=== PATIENT | male | born 1950 | race Caucasian/White ===

== ENCOUNTER → 2019-07-21 | Outpatient (CLI) | payer OTHER ==
[~2019-07-21] MED LIST: AMARYL2 MG PO; ASPIRIN EC81 M1; ASPIRIN EC81 M1 PO; ATORVASTATIN CA40 MG PO; AUGMENTIN 875875 MG PO; BACTRIM DS TAB1 EACH PO; CALCIUM 500 +1 EACH PO; CARVEDILOL12.5 MG PO; CENTRUM SILVER1 EAC2 PO; CIPRO500 MG PO; COLACE100 MG PO; COREG25 MG PO; DOXYCYCLINE 10100 MG PO; FORTAZ2 GM IVPB; GLUCOPHAGE1000 MG PO; HYDRALAZINE HC100 MG PO; HYDROCODONE-APA1 TA1 PO; IMDUR 30 MG TAB30 M1 PO; IRON325; IRON325 PO; LANTUS100 UNIT/M SUBQ; LASIX 40 MG TAB40 M2 PO; LISINOPRIL20 MG PO; METFORMIN HCL500 MG PO; NITROGLYCERIN0.4 MG SUBLING; NORCO 5-325 TA1 EACH PO; NORVASC10 MG PO; OMEPRAZOLE 20 M20 M1 PO; PLAVIX 75 MG TA75 M1 PO; PLAVIX 75 MG TA75 MG PO; SERTRALINE HCL50 MG PO; SODIUM BICARBO650 M3 PO; TRULICITY0.75 MG/0. SUBQ; TYLENOL325 MG PO; UNKNOWN BP MED; WELLBUTRIN SR150 MG PO; ZOLOFT25 MG; ZOSYN 3/0.373.375 G3 IVPB; [UNRECOGNIZED DRUG - REMARK]
[2019-07-21 11:00] LABS: HEMATOCRIT 30.7 % (42.0-52.0); HEMOGLOBIN 10.4 gm/dL (14.0-18.0); MCH 27.6 pg (26.0-34.0); MCHC 33.7 g/dL (28.0-37.0); MCV 81.9 fL (80.0-100.0); MPV 7.9 fl. (7.2-11.1); RBC 3.75 mil/uL (4.50-6.00); RDW-CV 14.6 % (10.5-14.5); WBC 9.5 thou/uL (4.0-11.0)
[2019-07-21 11:08] LABS: CALCIUM 9.2 mg/dL (8.5-10.1); POTASSIUM 5.2 mmol/L (3.5-5.1)
[2019-07-21 11:13] LABS: ALBUMIN 3.7 g/dL (3.4-5.0); TOTAL BILIRUBIN 0.6 mg/dL (<0.1-1.0); TOTAL PROTEIN 7.6 g/dL (6.4-8.2)
--- NOTE | 2019-07-21 17:10 | EKG ---
[place] [address] ELECTROCARDIOGRAM REPORT Name: MEY GOEL Room: [facility]#: [id number] Admission: 07/21/19 Attend Phys: Juan Andrade MD Discharge: Date of : 46 Report #: [id number] THIS REPORT FOR: //name// [facility] Test Date: 2019-07-21 Test Time: 11:12:35 Pat Name: MEY GOEL Department: Room: Gender: M Fire Controlman: : 1950 Requested By: Juan Andrade Order Number: [id number] Reading MD: Kaleb Roberts Measurements Intervals [place] Rate: 103 P: NM: QRS: 62 QRSD: 118 T: -43 QT: 345 QTc: 452 Interpretive Statements Atrial flutter Incomplete right bundle branch block Repol abnrm suggests ischemia, diffuse leads Baseline wander in lead(s) III,V3 Compared to ECG 03/27/2016 09:08:28 Incomplete right bundle-branch block now present Sinus rhythm no longer present Possible ischemia still present Electronically Signed On 07-21-2019 17:10:07 UNION [employer]ORER by Kaleb Roberts [email or web address] <ELECTRONICALLY SIGNED> By: Kaleb Roberts MD, FACC 07/21/19 1710 1112 1112 Kaleb Roberts MD, FAC /EPI
== END ==
LOC: M.SUR 08:41 → M.LAB 10:28 → M.SUR 10:28 → EDSTATUS 12:30
PROVIDERS: Surgery Vascular Surgery
DX: Z01.818 Encounter for other preprocedural examination (principal); N18.6 End stage renal disease

== ENCOUNTER 2019-09-11 09:43 | Observation (INO) | payer OTHER ==
[~2019-09-11] VITALS: Ht 172.7 cm; Wt 88.9 kg
[~2019-09-11 09:43] MED LIST changes: -ATORVASTATIN CA40 MG PO; +CARVEDILOL3.125 MG PO; +ELIQUIS5 MG PO; +HYDRALAZINE 5050 MG PO; +LASIX 20 MG TAB20 MG PO; +LIPITOR40 MG PO; +PERCOCET 5-3251 EACH PO
[2019-09-11 10:37] LABS: HEMATOCRIT 28.8 % (42.0-52.0); HEMOGLOBIN 9.5 gm/dL (14.0-18.0); MCH 27.5 pg (26.0-34.0); MCV 83.5 fL (80.0-100.0); RBC 3.45 mil/uL (4.50-6.00); RDW-CV 15.5 % (10.5-14.5); WBC 8.5 thou/uL (4.0-11.0)
[2019-09-11 10:50] LABS: INR 1.1; PROTIME 10.8 Seconds (9.20-11.50)
[2019-09-11 10:51] LABS: CALCIUM 8.8 mg/dL (8.5-10.1); CREATININE 3.6 mg/dL (0.6-1.3); POTASSIUM 4.9 mmol/L (3.5-5.1)
--- NOTE | 2019-09-11 11:23 | EKG ---
[place] [address] ELECTROCARDIOGRAM REPORT Name: MEY GOEL Room: [facility]#: [id number] Admission: 09/11/19 Attend Phys: Juan Andrade MD Discharge: Date of : 46 Report #: [id number] THIS REPORT FOR: //name// [facility] Test Date: 2019-09-11 Test Time: 10:29:37 Pat Name: MEY GOEL Department: Room: Gender: M Manager Utilization: : 1950 Requested By: Juan Andrade Order Number: [id number] Reading MD: David Razo Measurements Intervals [place] Rate: 74 P: 55 [place]: 204 QRS: 51 QRSD: 130 T: -48 QT: 396 QTc: 440 Interpretive Statements Sinus rhythm Right bundle branch block Nonspecific repol abnormality, lateral leads Compared to ECG 07/21/2019 11:12:35 Right bundle-branch block now present Atrial flutter no longer present Electronically Signed On 09-11-2019 11:23:10 DOCUMENTATION SPECIALIST by David Razo [email or web address] <ELECTRONICALLY SIGNED> By: David Razo MD, [facility] 09/11/19 1123 1029 1029 David Razo MD, [facility] /EPI
[2019-09-11 20:00] VITALS: BP 151/61
[2019-09-11 20:15] VITALS: BP 151/61
[2019-09-12 00:42] VITALS: BP 144/70
[2019-09-12 05:19] VITALS: BP 151/75
[2019-09-12 08:00] VITALS: BP 155/68
--- NOTE | 2019-09-12 08:01 | OP ---
[address] [address] OPERATIVE REPORT Name: TAMELAMarryMEY Andreia Room: [address] Ingrid Mcclelland#: [id number] Admission: 09/11/19 Attend Phys: Neha aparicio [place] Discharge: Date of : 46 Report #: [id number] THIS REPORT FOR: //name// CC: Otf Andrade DATE OF SERVICE: 09/11/2019 PREOPERATIVE DIAGNOSIS: End-stage renal disease. POSTOPERATIVE DIAGNOSIS: End-stage renal disease. PROCEDURE: Right upper extremity brachiocephalic AV fistula formation. SURGEON: Juan Andrade MD RIGGING UP MAN: David Alcala, surgical device sales representative. COMPLICATIONS: None. ESTIMATED BLOOD LOSS: Minimal. ANESTHESIA: General. INDICATIONS FOR PROCEDURE: The patient is a very pleasant 69-year-old white male with end-stage renal disease, not yet on dialysis. He needs AV fistula. He has marginal cephalic vein for fistula formation. We are going to attempt a brachiocephalic AV fistula today in the right arm. Informed consent was obtained from the patient with risks including but not limited to bleeding, infection, need for further surgery, pain, , heart attack, stroke, steal syndrome. The patient understood these risks and was agreeable to proceed. DESCRIPTION OF PROCEDURE: The patient was taken to the OR and placed in supine position. After adequate general anesthesia was initiated, timeout was performed. The patient's right arm was circumferentially prepped and draped in usual sterile fashion. Timeout was performed. I created a transverse incision just above the antecubital fossa, right upper extremity. Sharp and blunt dissections were carried down to the cephalic vein. It appeared to be adequate for fistula formation. I then dissected out the brachial artery. I controlled proximally and distally with clamps. There was some moderate plaque within the vessel. The patient was heparinized at this point in time. I ligated the cephalic vein distally using a 2-0 silk suture ligature. I divided Multiple side branches. I mobilized the vein over on to the artery. I spatulated the free end of the vein. I was able to pass a 3 mm dilator without difficulty. I created a longitudinal arteriotomy in the brachial [place] [address] OPERATIVE REPORT Name: MEY GOEL Room: [address] Ingrid Mcclelland#: [id number] Admission: 09/11/19 Attend Phys: Neha Mascorro Discharge: Date of : 46 Report #: [id number] end-to-side anastomosis with the vein using a running 6-0 Prolene suture. At the completion of the anastomosis, there was adequate hemostasis and excellent blood flow into the cephalic vein with a palpable thrill running at the patient's arm. The patient maintained a radial pulse. I irrigated the wound bed with antibiotic saline. I closed the wound in multiple layers using 3-0 Vicryl and 4-0 Monocryl for the skin. Incision was dressed with Dermabond. The patient was taken alert and awake to recovery room in good condition. All needle and instrument counts were correct. <ELECTRONICALLY SIGNED> By: Chaitanya Torres DO 09/12/19 0801 1203 1227Juan Andrade MD /nt
--- NOTE | 2019-09-12 08:02 | OP ---
[address] [address] OPERATIVE REPORT Name: MEY GOEL Room: [address] Ingrid Mcclelland#: [id number] Admission: 09/11/19 Attend Phys: Neha aparicio [place] Discharge: Date of : 46 Report #: [id number] THIS REPORT FOR: //name// CC: Otf Andrade DATE OF SERVICE: 09/11/2019 PREOPERATIVE DIAGNOSIS: Hematoma, right upper extremity. POSTOPERATIVE DIAGNOSIS: Hematoma, right upper extremity. SURGEON: Isidro Castro DO. PHOTO MACHINE OPERATOR: None. PROCEDURES: 1. Evacuation of hematoma with ligation of bleeding venous side branch with 6-0 Prolene. 2. Irrigation. 3. Primary closure of skin. ANESTHESIA: General. ESTIMATED BLOOD LOSS: 100 mL. SPECIMEN: None. COMPLICATIONS: None. CONDITION: Stable. DISPOSITION: Floor. INDICATIONS FOR THE PROCEDURE AND CONSENT: The patient is a 69-year-old male with end-stage renal disease, underwent a brachiocephalic AV fistula creation by my partner, Dr. Andrade. In the recovery room after surgery, the patient was developing some swelling at the area. There was concern for hematoma formation. A stat duplex was ordered, which did demonstrate a large hematoma. I was called from another facility and came to the bedside immediately. There was a large hematoma on exam and no thrill within the fistula. We then made arrangements to proceed to the OR emergently for evacuation of hematoma and possible revision, possible repair of the fistula. Risks and benefits were discussed with the patient and his family and they agreed to proceed. The patient was taken emergently [place] [address] OPERATIVE REPORT Name: MEY GOEL Room: [address] Ingrid Mcclelland#: [id number] Admission: 09/11/19 Attend Phys: Neha Mascorro Discharge: Date of : 46 Report #: [id number] PROCEDURE IN DETAIL: After timeout was performed, the patient was placed in supine position with sterile prep and drape of the right upper extremity, previous Dermabond was removed. The incision was opened with a 15 blade scalpel and a large hematoma, perhaps 500 mL of hematoma was removed. There was pulsatile bleeding noted. This was exposed, which appeared to be a side branch approximately 2 cm distal to the anastomosis on the vein side. I grasped this with a forceps and used a 6-0 Prolene in a [id number] fashion to ligate the bleeding vessel. This appeared to be hemostatic. Wound was irrigated. Additional hematoma was removed from the muscle belly and surrounding structures. The fistula was noted to have a thrill, but was somewhat pulsatile. I was able to identify the area of kinking at the subcutaneous fascial edge. This was likely related to the additional swelling. I relieved this area and a stronger thrill was noted. The Doppler was used to sculpt the vein along its entire length and although the vein coursed somewhat medially, it did have an excellent thrill and bruit. I marked this area on the skin. I then performed additional irrigation and slowly suctioned the fluid, no pooling or additional surgical bleeding was identified. Mj was applied to the wound bed and allowed to sit for several minutes. There was still some oozing, which is likely related to the patient's Xarelto and aspirin, but appeared to be minor. I then irrigated again and closed in layers using 2-0 Vicryl, 3-0 Vicryl and 4-0 Monocryl suture. Dermabond dressing was applied. The patient tolerated the procedure well. All lap, needle and instrument counts correct. <ELECTRONICALLY SIGNED> By: Chaitanya Torres DO 09/12/19801 23 01Isidro Castro DO /nt
[2019-09-12 11:58] VITALS: BP 155/68
--- NOTE | 2019-09-14 17:02 | EKG ---
[place] [address] ELECTROCARDIOGRAM REPORT Name: MEY GOEL Room: [address] MR.#: [id number] Admission: 09/11/19 Attend Phys: Neha Mascorro Discharge: 09/12/19 Date of : 46 Report #: [id number] THIS REPORT FOR: //name// [facility] Test Date: 2019-09-12 Test Time: 07:16:38 Pat Name: MEY GOEL Department: Room: [address] Gender: M Coal Handler: ADA : 1950 Requested By: Neha Valente Order Number: [id number] Durga MD: Kaleb Roberts Measurements Intervals [place] Rate: 82 P: 52 IA: 209 QRS: 54 QRSD: 125 T: -7 QT: 371 QTc: 434 Interpretive Statements Sinus rhythm Left atrial enlargement Right bundle branch block Nonspecific T abnormalities, lateral leads Compared to ECG 09/11/2019 10:29:37 Atrial abnormality now present T-wave abnormality now present Early repolarization no longer present Electronically Signed On 09-14-2019 17:01:53 INSPECTOR BICYCLE by Kaleb Roberts [email or web address] <ELECTRONICALLY SIGNED> By: Kaleb Roberts MD, FACC 09/14/19 1701 5 5 Kaleb Roberts MD, FACC /EPI
== END 2019-09-12 12:50 | disposition home or self-care (01) ==
LOC: M.SUR 09:43 → M.2W 21:01 → M.TBA 21:01 → M.2W 22:10
PROVIDERS: Surgery Vascular Surgery; ADMIT Family Medicine
DX: T14.8XXA Other injury of unspecified body region, initial encounter (principal); E78.5 Hyperlipidemia, unspecified; I25.10 Atherosclerotic heart disease of native coronary artery without angina pectoris; Z95.1 Presence of aortocoronary bypass graft; R00.1 Bradycardia, unspecified; Z95.0 Presence of cardiac pacemaker; E11.22 Type 2 diabetes mellitus with diabetic chronic kidney disease; I12.0 Hypertensive chronic kidney disease with stage 5 chronic kidney disease or end stage renal disease; N18.6 End stage renal disease; E11.40 Type 2 diabetes mellitus with diabetic neuropathy, unspecified; G51.0 Bell's palsy

== ENCOUNTER 2020-03-08 09:03 | Emergency (ER) | payer OTHER ==
[~2020-03-08] VITALS: Ht 175.3 cm; Wt 90.7 kg
[2020-03-08] MEDS ORDERED: COUMADIN 5 MG TA5 M1 PO (09:10)
[2020-03-08] MEDS ORDERED: PLAVIX 75 MG TA75 MG PO (09:11)
[2020-03-08] MEDS ORDERED: ISOSORBIDE MONO30 M1 PO (09:11)
[2020-03-08] MEDS ORDERED: RENAPLEX TABLE1 EACH PO (09:12)
[2020-03-08 09:46] LABS: ABSOLUTE BASOPHILS 0.1 thou/uL (0.0-0.2); ABSOLUTE EOSINOPHILS 0.2 thou/uL (0.0-0.7); ABSOLUTE LYMPHOCYTES 0.8 thou/uL (0.8-5.3); ABSOLUTE MONOCYTES 0.7 thou/uL (0.0-1.2); ABSOLUTE NEUTROPHILS 8.3 thou/uL (1.6-8.1); BASOPHILS 0.6 %; EOSINOPHILS 2.1 %; HEMATOCRIT 29.1 % (42.0-52.0); HEMOGLOBIN 9.6 gm/dL (14.0-18.0); LYMPHOCYTES 7.5 %; MCH 27.2 pg (26.0-34.0); MCHC 33.1 g/dL (28.0-37.0); MCV 82.3 fL (80.0-100.0); MONOCYTES 7.1 %; NUCLEATED RBCS 0 /100WBC; PLATELET COUNT* 243 thou/uL (150-400); POLYS 82.7 %; RBC 3.53 mil/uL (4.50-6.00); RDW-CV 16.2 % (10.5-14.5)
[2020-03-08 09:51] LABS: CALCIUM 8.4 mg/dL (8.5-10.1); CREATININE 3.1 mg/dL (0.6-1.3); POTASSIUM 3.7 mmol/L (3.5-5.1)
[2020-03-08 09:54] LABS: PROTIME 10.4 Seconds (9.20-11.50)
[2020-03-08 10:05] LABS: ALBUMIN 3.6 g/dL (3.4-5.0); CK-MB MASS 2.9 ng/mL (<0.5-3.6); MAGNESIUM 1.8 mg/dL (1.8-2.4); TOTAL BILIRUBIN 0.4 mg/dL (<0.1-1.0); TOTAL PROTEIN 7.7 g/dL (6.4-8.2)
[2020-03-08 10:37] VITALS: BP 148/64
--- NOTE | 2020-03-08 15:30 | EKG ---
[place] [address] ELECTROCARDIOGRAM REPORT Name: MEY GOEL Room: [facility]#: [id number] Admission: 03/08/20 Attend Phys: Discharge: Date of : 46 Date of Service: 03/08/20911 Report #: [id number] THIS REPORT FOR: //name// [facility] ED Test Date: 2020-03-08 Test Time: 09:12:32 Pat Name: MEY GOEL Department: Room: Gender: Trauma Counsellor: [facility] : 1950 Requested By: Estrada Jensen Order Number: [id number] MD: David Razo Measurements Intervals [place] Rate: 83 P: 20 PA: 187 QRS: 49 QRSD: 134 T: -69 QT: 364 QTc: 428 Interpretive Statements Sinus rhythm with first degree av block Probable left atrial enlargement Right bundle branch block Repol abnrm suggests ischemia, diffuse leads Compared to ECG 09/12/2019 07:16:38 no change Electronically Signed On 03-08-2020 15:30:37 CDT by David Razo [email or web address] <ELECTRONICALLY SIGNED> By: David Razo MD, [facility] 03/08/20 1530 David Razo MD, [facility] /EPI
== END 2020-03-08 10:53 | disposition home or self-care (01) ==
LOC: M.ERS 09:03
PROVIDERS: Family Medicine
DX: R06.00 Dyspnea, unspecified (principal); R53.1 Weakness; I10 Essential (primary) hypertension; E78.00 Pure hypercholesterolemia, unspecified; E11.40 Type 2 diabetes mellitus with diabetic neuropathy, unspecified; I25.10 Atherosclerotic heart disease of native coronary artery without angina pectoris; Z95.5 Presence of coronary angioplasty implant and graft; Z95.1 Presence of aortocoronary bypass graft